=== PATIENT | female | born 1975 | race Two or more races ===

== ENCOUNTER → 2018-10-17 | Outpatient (CLI) | payer OTHER ==
--- NOTE | 2018-10-17 16:27 | KCIC ---
Bilateral digital screening mammograms with 3-D tomosynthesis: Reason for examination: Routine baseline screening. Bilateral mammograms in CC and oblique projections were obtained with 2-D imaging and 3-D tomosynthesis imaging on a Siemens Inspiration unit and reviewed on the workstation. Interpretation was made with the benefit of CAD. The skin and nipples show no abnormalities. No abnormal axillary lymph nodes are seen. The breast parenchyma is heterogeneously dense. (Breast density: Category C.) There is some nodular architectural distortion posterior laterally in the right breast on cc view probably around the 9:00 C position. Recommend further evaluation with coned compression views and ultrasound. There are no other dominant masses, suspicious calcifications or architectural distortion. Impression: Nodular architectural distortion suggested posterior laterally in the right breast at approximately the 9:00 C position. This may represent superimposed tissue but recommend further evaluation with coned compression views and ultrasound. Your patient's mammogram demonstrates that she has dense breast tissue (breast density category C or D), which could hide abnormalities, and if she has other risk factors for breast cancer that have been identified, she might benefit from supplemental screening tests that may be suggested by you as her ordering physician. Dense breast tissue, in and of itself, is a relatively common condition. Therefore, this information is not provided to cause undue concern, but rather to raise your awareness and to promote discussion with your patient regarding the presence of other risk factors, in addition to dense breast tissue. Your patient's mammography results will be sent to her. BI-RAD Category 0: Incomplete. Needs additional imaging evaluation. "Our facility is accredited by the [employer] Mammography Program." This patient's information has been entered into a reminder system for the patient to be notified with the results of her examination and a target date for the next mammogram. Electronically signed by: Ade Horn MD (10/17/2018 4:24 PM) [id number]
== END | disposition home or self-care (01) ==
LOC: KCIC MAMMO 14:56
PROVIDERS: ATTEND Obstetrics & Gynecology
DX: Z12.31 Encounter for screening mammogram for malignant neoplasm of breast (principal); N63.11 Unspecified lump in the right breast, upper outer quadrant
CPT/HCPCS: 77063; 77067

== ENCOUNTER → 2018-11-04 | Outpatient (CLI) | payer OTHER ==
--- NOTE | 2018-11-04 16:57 | KCIC ---
Right breast diagnostic digital mammograms: Reason for examination: Parenchymal density on screening mammogram. Comparison is made to mammographic exam dated 10/17/2018. Coned compression views were obtained in CC and oblique sections. With these additional views, the area of nodularity does not appear to persists and likely represented some superimposed tissue. IMPRESSION: No suspicious abnormality with the additional views. Ultrasound to follow. Right breast ultrasound: Ultrasound examination of the lateral right breast and axilla was performed. No discrete cystic or solid nodules or architectural distortion is identified. No abnormal appearing lymph nodes are seen in the axilla. IMPRESSION: No focal abnormality seen in the right breast on ultrasound examination. Recommend reevaluation of the right breast with mammograms and ultrasound in 6 months. BI-RADS Category 3: Probably Benign. "Our facility is accredited by the [employer] Mammography Program." This patient's information has been entered into a reminder system for the patient to be notified with the results of her examination and a target date for the next mammogram. Electronically signed by: Ade Horn MD (11/04/2018 4:54 PM) [id number]
== END | disposition home or self-care (01) ==
LOC: KCIC MAMMO 09:34
PROVIDERS: ATTEND Obstetrics & Gynecology
DX: R92.8 Other abnormal and inconclusive findings on diagnostic imaging of breast (principal)
CPT/HCPCS: 76641; 77065

== ENCOUNTER 2019-01-20 01:04 | Emergency (ER) | payer OTHER ==
[~2019-01-20] VITALS: Ht 162.6 cm; Wt 86.2 kg
--- NOTE | 2019-01-20 01:18 | PHYS DOC ---
Adult General Chief Complaint Chief Complaint: MECHANICAL FALL HPI HPI Patient is a 43 year old allerigc reaction to shrimp on 01/18, lip got swollen got hives, took benadryl and naproxen then got dizzy got dizzy at top of stairs fell down nine stairs positive loc hit low back primarily not having any neck pain pmh: ovarian cyst cholesterol Review of Systems Review of Systems Constitutional: Denies fever or chills [] Eyes: Denies change in visual acuity, redness, or eye pain [] HENT: Denies nasal congestion or sore throat [] Respiratory: Denies cough or shortness of breath [] Cardiovascular: No additional information not addressed in HPI [] GI: Denies abdominal pain, nausea, vomiting, bloody stools or diarrhea [] : Denies dysuria or hematuria [] Musculoskeletal: Denies back pain or joint pain [] Integument: Denies rash or skin lesions [] Neurologic: Denies headache, focal weakness or sensory changes [] Endocrine: Denies polyuria or polydipsia [] All other systems were reviewed and found to be within normal limits, except as documented in this note. Current Medications Current Medications Current Medications Medications (Trade) Dose Ordered Sig/Mica Start Time Stop Time Status Last Admin Dose Admin Diphenhydramine HCl (Benadryl) 25 mg 1X ONCE 01/20/19 02:00 01/20/19 02:01 DC 01/20/19 02:03 25 MG Methylprednisolone Sodium Succinate (SOLU-Medrol 125MG VIAL) 125 mg 1X ONCE 01/20/19 02:00 01/20/19 02:01 DC 01/20/19 02:04 125 MG Sodium Chloride 1,000 ml @ 1,000 mls/hr 1X ONCE 01/20/19 02:00 01/20/19 02:59 DC 01/20/19 02:04 1,000 MLS/HR Allergies Allergies Allergies Coded Allergies Type Severity Reaction Last Updated Verified amitriptyline Adverse Reaction Intermediate 04/17/16 Yes cephalexin Adverse Reaction Intermediate Nausea 04/17/16 Yes Physical Exam Physical Exam Constitutional: Well developed, well nourished, no acute distress, non-toxic appearance. [] HENT: Normocephalic, atraumatic, bilateral external ears normal, oropharynx moist, no oral exudates, nose normal. []Oropharynx are is no significant swelling Eyes: PERRLA, EOMI, conjunctiva normal, no discharge. [] Neck: Normal range of motion, no tenderness, supple, no stridor. [] Cardiovascular:Heart rate regular rhythm, no murmur [] Lungs & Thorax: Bilateral breath sounds clear to auscultation [] Abdomen: Bowel sounds normal, soft, no tenderness, no masses, no pulsatile masses. [] Skin: There is a urticarial rash on the face and trunk and neck Back: Tenderness to palpation noted in the paraspinous area as well as the right buttock area with no obvious trauma identified no focal midline tenderness Extremities no trauma seen Neurologic: Alert and oriented X 3, normal motor function, normal sensory function, no focal deficits noted. [] Psychologic: Affect normal, judgement normal, mood normal. [] Current Patient Data Vital Signs Vital Signs Date Time Temp Pulse Resp B/P (MAP) Pulse Ox O2 Delivery O2 Flow Rate FiO2 01/20/19 03:05 64 17 100 01/20/19 01:12 98.8 139/79 (99) Room Air 98.8 Lab Values Laboratory Tests Test 01/20/19 01:45 01/20/19 02:35 White Blood Count 10.7 x10^3/uL (4.0-11.0) Red Blood Count 4.02 x10^6/uL (3.50-5.40) Hemoglobin 13.1 g/dL (12.0-15.5) Hematocrit 37.5 % (36.0-47.0) Mean Corpuscular Volume 93 fL (79-100) Mean Corpuscular Hemoglobin 33 pg (25-35) Mean Corpuscular Hemoglobin Concent 35 g/dL (31-37) Red Cell Distribution Width 12.7 % (11.5-14.5) Platelet Count 223 x10^3/uL (140-400) Neutrophils (%) (Auto) 85 % (31-73) H Lymphocytes (%) (Auto) 10 % (24-48) L Monocytes (%) (Auto) 4 % (0-9) Eosinophils (%) (Auto) 0 % (0-3) Basophils (%) (Auto) 0 % (0-3) Neutrophils # (Auto) 9.1 x10^3/uL (1.8-7.7) H Lymphocytes # (Auto) 1.1 x10^3/uL (1.0-4.8) Monocytes # (Auto) 0.5 x10^3/uL (0.0-1.1) Eosinophils # (Auto) 0.0 x10^3/uL (0.0-0.7) Basophils # (Auto) 0.0 x10^3/uL (0.0-0.2) Segmented Neutrophils % 86 % (35-66) H Lymphocytes % 12 % (24-48) L Monocytes % 2 % (0-10) Platelet Estimate Adequate (ADEQUATE) Sodium Level 136 mmol/L (136-145) Potassium Level 4.1 mmol/L (3.5-5.1) Chloride Level 101 mmol/L (98-107) Carbon Dioxide Level 26 mmol/L (21-32) Anion Gap 9 (6-14) Blood Urea Nitrogen 20 mg/dL (7-20) Creatinine 0.9 mg/dL (0.6-1.0) Estimated GFR (Cockcroft-Gault) 69.0 BUN/Creatinine Ratio 22 (6-20) H Glucose Level 147 mg/dL (70-99) H Calcium Level 8.7 mg/dL (8.5-10.1) Total Bilirubin 0.4 mg/dL (0.2-1.0) Aspartate Amino Transferase (AST) 25 U/L (15-37) Alanine Aminotransferase (ALT) 28 U/L (14-59) Alkaline Phosphatase 53 U/L (46-116) Total Protein 6.9 g/dL (6.4-8.2) Albumin 3.4 g/dL (3.4-5.0) Albumin/Globulin Ratio 1.0 (1.0-1.7) Urine Collection Type Unknown Urine Color Latoya Urine Clarity Clear Urine pH 6.0 Urine Specific [place] >=1.030 Urine Protein 30 mg/dL (NEG-TRACE) Urine Glucose (UA) Negative mg/dL (NEG) Urine Ketones (Stick) Trace mg/dL (NEG) Urine Blood Negative (NEG) Urine Nitrite Negative (NEG) Urine Bilirubin Small (NEG) Urine Urobilinogen Dipstick 0.2 mg/dL (0.2 mg/dL) Urine Leukocyte Esterase Trace (NEG) Urine RBC 1-2 /HPF (0-2) Urine WBC 1-4 /HPF (0-4) Urine Squamous Epithelial Cells Few /LPF Urine Bacteria 0 /HPF (0-FEW) Urine Mucus Mod /LPF Urine Test Negative (NEG) Laboratory Tests 01/20/19 01:45 Laboratory Tests 01/20/19 01:45 EKG EKG []Normal sinus rhythm rate of 64 nonspecific inferior changes no acute STEMI Radiology/Procedures Radiology/Procedures [] Course & Med Decision Making Course & Med Decision Making Pertinent Labs and Imaging studies reviewed. (See chart for details) []Patient is allergic reaction to shrimp no involvement fluids Benadryl and Cipro Medrol were given In that setting is also she got dizzy and lightheaded and fell down 6 steps with loss of consciousness would do head CT is there is no C-spine tenderness noted. There is some low back pain we'll do lumbar spine x-ray as well as urinalysis basic lab workup IV fluids and hydration blood pressure 98/60 reassessment pt has better rash feeling better still having back pain. plan for ct head and lumbar spine if negative, d/c home with rx prednsone Dragon Disclaimer Dragon Disclaimer This electronic medical record was generated, in whole or in part, using a voice recognition dictation system. Departure Departure Impression: Primary Impression: Allergic reaction Additional Impression: Low back pain Disposition: HOME, SELF-CARE Condition: STABLE Referrals: ROSANNE REYES MD (PCP) Scripts Epinephrine (EPIPEN 2-[place]) 0.3 Mg/0.3 Ml Auto.injct 0.3 MG IJ 1X PRN for ANAPHYLAXIS, #1 SYR Prov: STEPHANY JAIN MD 01/20/19 Prednisone (PREDNISONE) 50 Mg Tablet 1 TAB PO DAILY, #3 TAB Prov: STEPHANY JAIN MD 01/20/19 Problem Qualifiers STEPHANY JAIN MD Jan 20, 2019 01:18
[2019-01-20] MEDS ORDERED: diphenhydrAMINE 50 MG/ML VIAL IVP ONE (02:00)
[2019-01-20] MEDS ORDERED: IV NORMAL SALINE 1000ML BAG 1,000 ML IV ONE (02:00)
[2019-01-20] MEDS ORDERED: methylPREDNISolone SOD SUCC PF 125 MG/2 ML VIAL. IV ONE (02:00)
[2019-01-20 02:01] LABS: BASO % 0 % (0-3); EOS % 0 % (0-3); HEMATOCRIT 37.5 % (36.0-47.0); HEMOGLOBIN 13.1 g/dL (12.0-15.5); LYMPH # 1.1 x10^3/uL (1.0-4.8); LYMPH % 10 % (24-48); MEAN CORPUSCULAR HEMOGLOBIN 33 pg (25-35); MEAN CORPUSCULAR HGB CONC 35 g/dL (31-37); MEAN CORPUSCULAR VOLUME 93 fL (79-100); MONO # 0.5 x10^3/uL (0.0-1.1); MONO % 4 % (0-9); NEUT # 9.1 x10^3/uL (1.8-7.7); NEUT % 85 % (31-73); PLATELET COUNT 223 x10^3/uL (140-400); RED BLOOD COUNT 4.02 x10^6/uL (3.50-5.40); RED CELL DISTRIBUTION WIDTH 12.7 % (11.5-14.5); WHITE BLOOD COUNT 10.7 x10^3/uL (4.0-11.0)
[2019-01-20] MEDS ORDERED: PRED50TA PO (02:01)
[2019-01-20] MEDS ORDERED: EPIPEN 2-P0.3 MG/0.3 IJ (02:01)
[2019-01-20 02:10] LABS: CALCIUM 8.7 mg/dL (8.5-10.1); CREATININE 0.9 mg/dL (0.6-1.0); POTASSIUM 4.1 mmol/L (3.5-5.1)
[2019-01-20 02:15] LABS: ALBUMIN 3.4 g/dL (3.4-5.0); TOTAL BILIRUBIN 0.4 mg/dL (0.2-1.0); TOTAL PROTEIN 6.9 g/dL (6.4-8.2)
[2019-01-20 02:35] LABS: % SEGS 86 % (35-66)
[2019-01-20 02:47] LABS: % LYMPHS 12 % (24-48); % MONOS 2 % (0-10)
[2019-01-20 02:48] LABS: PLT ESTIMATE ADEQUATE (ADEQUATE)
[2019-01-20 03:04] LABS: CLARITY,URINE CLEAR; COLOR,URINE AMBER
[2019-01-20 03:05] LABS: BILIRUBIN,URINE SMALL (NEG); NITRITE,URINE NEGATIVE (NEG); PROTEIN,URINE 30 mg/dL (NEG-TRACE); UROBILINOGEN,URINE 0.2 mg/dL (0.2 mg/dL)
[2019-01-20 03:06] LABS: BACTERIA,URINE 0 /HPF (0-FEW); SQUAMOUS EPITHELIAL CELL,UR FEW /LPF
[2019-01-20 03:18] LABS: U PREG PATIENT NEGATIVE (NEG)
[2019-01-20] MEDS ORDERED: ACETAMINOPHEN 500 MG TABLET PO ONE (04:00)
[2019-01-20 04:20] VITALS: BP 94/54
--- NOTE | 2019-01-20 04:20 | RAD ---
INDICATION: Trauma COMPARISON: None. TECHNIQUE: Axial CT images obtained through the head without intravenous contrast. One or more of the following individualized dose reduction techniques were utilized for this examination: 1. Automated exposure control; 2. Adjustment of the mA and/or kV according to patient size; 3. Use of iterative reconstruction technique. FINDINGS: No intracranial hemorrhage. No midline shift. Basal cisterns patent. Ventricles and sulci are unremarkable. No acute osseous abnormality. Orbits and paranasal sinuses unremarkable. There are some probable calcifications in the soft tissues. There is some subcutaneous edema of the soft tissues. IMPRESSION: 1. No acute intracranial hemorrhage. 2. Posterior scalp cephalohematoma on the left. Electronically signed by: Jem Chapman MD (01/20/2019 4:17 AM) [id number]
--- NOTE | 2019-01-20 07:24 | EKG ---
[facility] [address] [place] [address] Test Date: 2019-01-20 Test Time: 01:50:31 Pat Name: MARINA JACOBS Department: Room: Gender: F [employer]: : 1975 Requested By: STEPHANY JAIN Order Number: [id number] Reading MD: Measurements Intervals [place] Rate: 64 P: 46 SD: 166 QRS: 39 QRSD: 80 T: 14 QT: 378 QTc: 390 Interpretive Statements SINUS RHYTHM QRS(T) CONTOUR ABNORMALITY CONSIDER ANTEROSEPTAL MYOCARDIAL DAMAGE POSSIBLY ABNORMAL ECG RI6.01 No previous ECG available for comparison
--- NOTE | 2019-01-20 08:23 | RAD ---
Lumbar spine 01/20/2019 1:49 AM Indication: Trauma Comparison: None Findings: No evidence of acute fracture or alignment abnormality is identified. Vertebral body heights are maintained. Disc spaces are maintained. Facet joints appear to remain aligned. No acute soft tissue changes are seen. IMPRESSION: No radiographic evidence of acute osseous abnormality Electronically signed by: Mike Cano MD (01/20/2019 8:21 AM) [id number]
--- NOTE | 2019-01-26 10:19 | NUR ---
Late entry made to Medical Record. IV Stop time transcribed from eMAR to IV spreadsheet
== END 2019-01-20 04:28 | disposition home or self-care (01) ==
LOC: ER 01:04
DX: L50.0 Allergic urticaria (principal); M54.5 Low back pain; R42 Dizziness and giddiness; Z88.8 Allergy status to other drugs, medicaments and biological substances; Z88.1 Allergy status to other antibiotic agents; W10.9XXA Fall (on) (from) unspecified stairs and steps, initial encounter; Y93.89 Activity, other specified; Y92.89 Other specified places as the place of occurrence of the external cause; Y99.8 Other external cause status
CPT/HCPCS: 36415; 70450; 72100; 80053; 81001; 81025; 85007; 85025; 87086; 93005; 96361; 96374; 96375; 99285; J1200; J2930; J7030

== ENCOUNTER → 2019-05-22 | Outpatient (CLI) | payer OTHER ==
[~2019-05-22] MED LIST: EPIPEN 2-P0.3 MG/0.3 IJ; PRED50TA PO
--- NOTE | 2019-05-23 10:28 | KCIC ---
Right breast diagnostic digital mammograms with 3-D tomosynthesis: Reason for examination: Follow-up asymmetry. Comparison is made to previous examination dated 10/17/2018. Right breast mammograms in standard and coned compression CC and oblique projections were obtained with 2-D imaging and 3-D tomosynthesis imaging on a Siemens Inspiration unit and reviewed on the workstation. Interpretation was made with the benefit of CAD. The skin and nipple show no abnormalities. No abnormal axillary lymph nodes are seen. The breast parenchyma is heterogeneously dense. (Breast density: Category C.) There continues be some mild patchy asymmetry posterior laterally in the right breast but this is improved when compared to previous exam. There are no new dominant masses, suspicious calcifications or architectural distortion. Impression: Improvement in the patchy asymmetry seen posterior laterally at the 8:00 and 9:00 position of the right breast. Ultrasound to follow. Your patient's mammogram demonstrates that she has dense breast tissue (breast density category C or D), which could hide abnormalities, and if she has other risk factors for breast cancer that have been identified, she might benefit from supplemental screening tests that may be suggested by you as her ordering physician. Dense breast tissue, in and of itself, is a relatively common condition. Therefore, this information is not provided to cause undue concern, but rather to raise your awareness and to promote discussion with your patient regarding the presence of other risk factors, in addition to dense breast tissue. Your patient's mammography results will be sent to her. BI-RAD Category 0: Incomplete. Needs additional imaging evaluation. Right breast ultrasound: Comparison is made to previous study dated 11/04/2018. Ultrasound examination of the right breast and axilla was performed. No cystic or solid nodules or architectural distortions are apparent. No abnormal appearing lymph nodes are seen in the axilla. IMPRESSION: No focal abnormalities evident in the right breast. Recommend mammographic follow-up at the time of bilateral mammograms in 6 months. BI-RADS Category 3: Probably Benign. "Our facility is accredited by the [employer] Mammography Program." This patient's information has been entered into a reminder system for the patient to be notified with the results of her examination and a target date for the next mammogram. Electronically signed by: Ade Horn MD (05/23/2019 10:26 AM) [id number]
== END ==
LOC: KCIC MAMMO 12:46
PROVIDERS: ATTEND Obstetrics & Gynecology
DX: R92.8 Other abnormal and inconclusive findings on diagnostic imaging of breast (principal)
CPT/HCPCS: 76641; 77065; G0279; 77061

== ENCOUNTER → 2020-03-10 | Outpatient (CLI) | payer OTHER ==
--- NOTE | 2020-03-10 14:47 | KCIC ---
Bilateral diagnostic digital mammograms with 3-D tomosynthesis: Reason for examination: Follow-up parenchymal asymmetry. Comparison is made to previous studies dated 10/17/2018 and 05/22/2019. Bilateral mammograms in CC and oblique projections were obtained with 2-D imaging and 3-D tomosynthesis imaging on a Siemens Inspiration unit and reviewed on the workstation. Interpretation was made with the benefit of CAD. The skin and nipples show no abnormalities. No abnormal axillary lymph nodes are seen. The breast parenchyma is heterogeneously dense. (Breast density: Category C.) There is improvement in the parenchymal asymmetry seen posterior laterally on previous exams. There are no new dominant masses, suspicious calcifications or architectural distortion. Impression: No evidence of malignancy. Ultrasound to follow. Your patient's mammogram demonstrates that she has dense breast tissue (breast density category C or D), which could hide abnormalities, and if she has other risk factors for breast cancer that have been identified, she might benefit from supplemental screening tests that may be suggested by you as her ordering physician. Dense breast tissue, in and of itself, is a relatively common condition. Therefore, this information is not provided to cause undue concern, but rather to raise your awareness and to promote discussion with your patient regarding the presence of other risk factors, in addition to dense breast tissue. Your patient's mammography results will be sent to her. BI-RAD Category 0: Incomplete. Needs additional imaging evaluation. Right breast ultrasound: Comparison is made to previous studies dated 11/04/2018 and 05/22/2019. Ultrasound examination was performed with attention to the lateral breast and axilla. No discrete cystic or solid nodules or architectural distortion is seen. There is some mild ductal ectasia. No abnormal appearing lymph nodes are seen in the right axilla. IMPRESSION: No focal suspicious abnormality seen in the right breast. Recommend routine mammographic follow-up. BI-RADS Category 2: Benign. "Our facility is accredited by the [employer] Mammography [employer]." This patient's information has been entered into a reminder system for the patient to be notified with the results of her examination and a target date for the next mammogram. Electronically signed by: Ade Horn MD (03/10/2020 2:44 PM) [id number]
== END | disposition home or self-care (01) ==
LOC: KCIC MAMMO 12:57
PROVIDERS: ATTEND Obstetrics & Gynecology
DX: R92.2 Inconclusive mammogram (principal)
CPT/HCPCS: 76641; 77066; G0279; 77062

== ENCOUNTER → 2020-07-01 | Outpatient (CLI) | payer OTHER ==
[~2020-07-01] MED LIST changes: +DIPH25TA24 PO
--- NOTE | 2020-07-01 15:49 | KCIC ---
MRI STUDY OF THE LEFT KNEE WITHOUT CONTRAST CLINICAL INDICATIONS: Chronic lateral left knee pain. Painful to bend. No known injury. TECHNIQUE: T1 and T2 and proton density weighted MRI sequences of the left knee was performed. Images were obtained in all 3 planes. FINDINGS: The anterior and posterior cruciate ligaments are intact. The quadriceps and patellar tendo ns are intact. No articular surface tear of the medial or lateral meniscus is seen. There is a small focus of chondromalacia and articular cartilage defect involving the lateral tibial plateau. This de fect measures 7 mm in AP dimension by 3 mm in transverse dimension. Mild underlying stress reaction b one marrow edema is seen involving the lateral tibial plateau. No focal osteochondral abnormality of the medial tibial femoral joint compartment is seen. The patella is normally aligned. There is a smal l focus of subchondral stress reaction bone marrow edema of the lateral aspect of the trochlea. There is mild overlying chondromalacia. No articular cartilage defect is seen here otherwise. The patellar articular cartilage is unremarkable. The medial and lateral retinacular ligaments are intact. No fra cture or marrow infiltrative process is seen. The medial collateral ligament is intact and no menisco capsular separation is seen. The lateral collateral ligament complex and iliotibial band and popliteu s tendon are intact. No posterior lateral corner injury is seen. No muscle edema is seen. No distende d Eubanks's cyst is seen. Small knee joint effusion is seen. No loose body is evident. IMPRESSION: No ligament or meniscal or tendon tear is seen. 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 Mild subchondral stress reaction bone marrow edema of the lateral portion of the trochlea with mild o verlying chondromalacia of the trochlear cartilage. Electronically signed by: Brennon Montiel MD (07/01/2020 3:47 PM) [place] [id number]
== END ==
LOC: KCIC MRI 13:01
PROVIDERS: ATTEND Orthopaedic Surgery
DX: M94.262 Chondromalacia, left knee (principal); M25.462 Effusion, left knee
CPT/HCPCS: 73721

== ENCOUNTER 2020-11-25 08:59 | Emergency (ER) | payer OTHER ==
[~2020-11-25] VITALS: Ht 157.5 cm; Wt 65.0 kg
[~2020-11-25 08:59] MED LIST changes: -DIPH25TA24 PO
[2020-11-25 10:00] VITALS: BP 110/62
[2020-11-25] MEDS ORDERED: DIPH25TA24 PO (10:33)
--- NOTE | 2020-11-25 10:33 | ED.ADGEN ---
Past Medical History Past Medical History: No Pertinent History Past Surgical History: Other Additional Past Surgical Histo: R knee Smoking Status: Never Smoker Alcohol Use: None Drug Use: None General Adult EDM: Chief Complaint: ALLERGIC REACTION HPI: HPI: Patient is a 45 year old female coming in for hives and itching. Patient states she woke up 7 hours ago and had diffuse pruritic rash. Patient states she has a history of prior reactions eating shrimp. Patient states she ate tuna last night, can. Denies any difficulty breathing, swallowing or managing secretions. Does not take anything for the symptoms. Rash has mostly resolved at this time Review of Systems: Review of Systems: All other systems within normal limits except for as noted in the HPI Allergies: Allergies: Allergies Coded Allergies Type Severity Reaction Last Updated Verified amitriptyline Adverse Reaction Intermediate 04/17/16 Yes cephalexin Adverse Reaction Intermediate Nausea 04/17/16 Yes Physical Exam: PE: Constitutional: Well developed, well nourished, no acute distress, non-toxic appearance. [] HENT: Normocephalic, atraumatic, bilateral external ears normal, nose normal. [] Eyes: PERRLA, conjunctiva normal, no discharge. [] Neck: No rigidity, supple, no stridor. [] Cardiovascular: Regular rate and rhythm, brisk cap refill [] Lungs & Thorax: Non labored symmetric respirations, no tachypnea or respiratory distress [] Abdomen: Soft, nondistended. Skin: Warm, dry, hives to bilateral elbows. [] Back: Unremarkable Extremities: No deformities, range of motion grossly intact, no lower extremity edema [] Neurologic: Alert and oriented X 3, no focal deficits noted. [] Psychologic: Affect normal, judgement normal, mood normal. [] Current Patient Data: Vital Signs: Vital Signs Date Time Temp Pulse Resp B/P (MAP) Pulse Ox O2 Delivery O2 Flow Rate FiO2 11/25/20 10:00 98.4 62 18 110/62 (78) 100 Room Air 98.4 EKG: EKG: [] Heart Score: C/O Chest Pain: No Risk Factors: Risk Factors: DM, Current or recent (<one month) smoker, HTN, HLP, family hist ory of CAD, obesity. Risk Scores: Score 0 - 3: 2.5% MACE over next 6 weeks - Discharge Home Score 4 - 6: 20.3% MACE over next 6 weeks - Admit for Clinical Observation Score 7 - 10: 72.7% MACE over next 6 weeks - Early Invasive Strategies Radiology/Procedures: Radiology/Procedures: [] Course & Med Decision Making: Course & Med Decision Making Pertinent Labs and Imaging studies reviewed. (See chart for details) [] Dragon Disclaimer: Dragon Disclaimer: This electronic medical record was generated, in whole or in part, using a voice recognition dictation system. Departure Departure Impression: Primary Impression: Hives Disposition: HOME / SELF CARE / HOMELESS Condition: STABLE Referrals: ROSANNE REYES MD (PCP) Patient Instructions: Hives Scripts Diphenhydramine Hcl (DIPHENHYDRAMINE HCL) 25 Mg Tablet 25 MG PO PRN Q4-6HRS PRN for ITCHING for 5 Days, #20 TAB Prov: ANTOINE COBOS MD 11/25/20 ANTOINE COBOS MD Nov 25, 2020 10:33
[2020-11-25] MEDS ORDERED: DEXAMETHASONE 4 MG TABLET PO ONE (10:45)
[2020-11-25] MEDS ORDERED: hydrOXYzine IM 50 MG/ML VIAL IM ONE (10:45)
== END 2020-11-25 11:12 | disposition home or self-care (01) ==
LOC: ER 08:59
DX: L50.9 Urticaria, unspecified (principal); Z88.1 Allergy status to other antibiotic agents; Z88.8 Allergy status to other drugs, medicaments and biological substances
CPT/HCPCS: 96372; 99283; J3410

== ENCOUNTER → 2021-01-30 | Outpatient (CLI) | payer OTHER ==
[~2021-01-30] MED LIST changes: +DIPH25TA24 PO; +IOHEXOL 240 MG/ML 50ML VIAL. PO ONE; +IOHEXOL 300 MG/ML 100ML VIAL. IV ONE
--- NOTE | 2021-01-30 16:27 | KCIC ---
CT scan of the abdomen and pelvis without comparison for pain and bloating for one month. TECHNIQUE: Contiguous axial CT images are obtained from the apex of diaphragm to the pelvic floor fol lowing a ministration of both IV and oral contrast. Sagittal and coronal reformations are evaluated. FINDINGS: Trace atelectasis in the lung bases. Moderate amount of stool with no evidence of bowel obs truction. Normal appendix. No free or loculated fluid collections in the abdomen or pelvis. No suspic ious adenopathy. No abnormalities of the liver, spleen, pancreas, bilateral adrenal glands, bilateral kidneys, or bladder. No evidence of hydronephrosis or hydroureter. Urinary bladder is fluid distende d and grossly unremarkable. No adnexal masses. There is fullness of the cervix which is nonspecific. IUD is present. There is also numerous dilated pelvic varicosities particularly notable in the left d ue to asymmetric venous enhancement indicative of moiz reflux. Patent left renal vein. No significan t osseous abnormalities. IMPRESSION: 1. Pelvic venous congestion with moiz reflux in the left ovarian vein. If this patient has signs or symptoms of pelvic congestion syndrome, she may benefit from interventional radiology consultation fo r ovarian vein embolization. 2. Nonspecific fullness of the cervix. Consider bimanual examination and Pap smear with consideration for pelvic ultrasound if clinically warranted. PQRS Compliance Statement: One or more of the following individualized dose reduction techniques were utilized for this examinat ion: 1. Automated exposure control 2. Adjustment of the mA and/or kV according to patient size 3. Use of iterative reconstruction technique Electronically signed by: Misael Phelan MD (01/30/2021 4:25 PM) [id number]
== END ==
LOC: KCIC CT 10:03
PROVIDERS: ATTEND Family Medicine
DX: R19.00 Intra-abdominal and pelvic swelling, mass and lump, unspecified site (principal); N32.89 Other specified disorders of bladder; I86.2 Pelvic varices; I87.8 Other specified disorders of veins
CPT/HCPCS: 74177; Q9966

== ENCOUNTER → 2021-05-19 | Outpatient (CLI) | payer OTHER ==
[~2021-05-19] MED LIST changes: -IOHEXOL 240 MG/ML 50ML VIAL. PO ONE; -IOHEXOL 300 MG/ML 100ML VIAL. IV ONE
--- NOTE | 2021-05-19 13:15 | KCIC ---
Bilateral digital screening mammograms with 3-D tomosynthesis: Reason for examination: Routine screening. Comparison is made to previous studies dated back to 10/17/2018. Bilateral mammograms in CC and oblique projections were obtained with 2-D imaging and 3-D tomosynthes is imaging on a Siemens Inspiration unit and reviewed on the workstation. Interpretation was made wit h the benefit of CAD. The skin and nipples show no abnormalities. No abnormal axillary lymph nodes are seen. The breast par enchyma is heterogeneously dense. (Breast density: Category C.) There are no dominant masses, suspici ous calcifications or architectural distortion. Impression: No evidence of malignancy. Recommend routine screening. Your patient's mammogram demonstrates that she has dense breast tissue (breast density category C or D), which could hide abnormalities, and if she has other risk factors for breast cancer that have bee n identified, she might benefit from supplemental screening tests that may be suggested by you as her ordering physician. Dense breast tissue, in and of itself, is a relatively common condition. Therefo re, this information is not provided to cause undue concern, but rather to raise your awareness and t o promote discussion with your patient regarding the presence of other risk factors, in addition to d ense breast tissue. Your patient's mammography results will be sent to her. BI-RAD Category 1: Negative. "Our facility is accredited by the [employer] Mammography Program." This patient's information has been entered into a reminder system for the patient to be notified wit h the results of her examination and a target date for the next mammogram. Electronically signed by: Ade Horn MD (05/19/2021 1:13 PM) [id number]
== END ==
LOC: KCIC MAMMO 12:29
PROVIDERS: ATTEND Obstetrics & Gynecology
DX: Z12.31 Encounter for screening mammogram for malignant neoplasm of breast (principal)
CPT/HCPCS: 77063; 77067